=== PATIENT | female | born 1980 ===

== ENCOUNTER 2018-08-23 08:53 | Outpatient (RCR) | payer OTHER | END 2018-10-22 15:41 | disposition home or self-care (01) | LOC: WSOH 08:53 | DX: S46.011A Strain of muscle(s) and tendon(s) of the rotator cuff of right shoulder, initial encounter (principal); Y92.63 Factory as the place of occurrence of the external cause; X50.0XXA Overexertion from strenuous movement or load, initial encounter; Y93.89 Activity, other specified; Y99.0 Civilian activity done for income or pay ==

== ENCOUNTER 2021-04-07 14:31 | Outpatient (RCR) | payer OTHER | END 2021-06-03 | disposition home or self-care (01) | LOC: WSOH | DX: S80.01XD Contusion of right knee, subsequent encounter (principal); X58.XXXD Exposure to other specified factors, subsequent encounter; Y99.0 Civilian activity done for income or pay ==